=== PATIENT | male | born 1975 | race Caucasian/White ===

== ENCOUNTER 2018-12-09 17:10 | Emergency (ER) | payer BC, OTHER ==
[2018-12-09] MEDS ORDERED: Ondansetron 4 MG/2 ML SDV IVPUSH ONE (17:46)
[2018-12-09] MEDS ORDERED: HYDROmorphone 1 MG/ML Syringe IVPUSH STA (17:46)
--- NOTE | 2018-12-09 17:52 | EDM.PDOC ---
<Kaz Holder - Last Filed: 12/09/18 18:49> ED HPI GENERAL MEDICAL PROBLEM - General Chief Complaint: Abdominal Pain Stated Complaint: STOMACH PAIN Time Seen by Provider: 12/09/18 17:25 Source of Information: Reports: Patient, Family (Mother, sister), RN Notes Reviewed History Limitations: Reports: Physical Impairment (Expressive aphasia) - History of Present Illness INITIAL COMMENTS - FREE TEXT/NARRATIVE: The patient suffered a stroke and has expressive aphasia. He is able to answer some questions, but many of the specifics of his history are answered by his mother and sister. The patient states that he developed right upper quadrant abdominal pain around 14:30 this afternoon, after eating a miller cheeseburger around 13:00. The character of the pain is unclear. The triage nurse indicated that the pain radiates through to his back, but the patient denies that to me. The pain is constant, but may be getting progressively worse. The patient indicates that his pain is made worse if he presses on it, otherwise, he has not identified any modifiers. He has not had any nausea, vomiting, constipation, diarrhea, or urinary symptoms. No recent fever. No prior similar symptoms. He has not taken any [id number] or home remedies to treat his symptoms. [facility] Treatments OCEANOLOGIST: Reports: Other (see below) Other Treatments OCEANOLOGIST: none Right Upper Abdomen Pain Score (Numeric/FACES): 6 - Related Data Allergies Allergy/AdvReac Type Severity Reaction Status Date / Time No Known Allergies Allergy Verified 04/17/14 22:03 Home Meds: Home Meds . [Unable to Verify Home Med List] 12/09/18 [History] Past Medical History Cardiovascular History: Reports: Other (See Below) (Aortic stenosis, status post porcine aVR) Neurological History: Reports: CVA Other Neuro History: Residual expressive aphasia, right hemiparesis Psychiatric History: Reports: Anxiety, Depression - Past Surgical History Cardiovascular Surgical History: Reports: Valve Replacement (porcine aVR) GI Surgical History: Reports: Appendectomy Musculoskeletal Surgical History: Reports: ORIF (right knee) Social & Family History - Tobacco Use Smoking Status *Q: Current Some Day Smoker - Alcohol Use Alcohol Use History: Yes Alcohol Use Frequency: Socially - Recreational Drug Use Recreational Drug Use: No - Living Situation & Occupation Living situation: Reports: , with Family (Brother + his family) Occupation: Disabled ED ROS GENERAL - Review of Systems Review Of Systems: ROS reveals no pertinent complaints other than HPI. ED EXAM, GI/ABD - Physical Exam Exam: See Below Exam Limited By: No Limitations General Appearance: Alert, WD/WN, No Apparent Distress Eyes: Bilateral: Normal Appearance, EOMI Ears: Normal External Exam, Hearing Grossly Normal Nose: Normal Inspection Throat/Mouth: Normal Inspection, Normal Lips, Normal Voice, No Airway Compromise Head: Atraumatic, Normocephalic Neck: Normal Inspection, Full Range of Motion Respiratory/Chest: No Respiratory Distress, Lungs Clear, Normal Breath Sounds, No Accessory Muscle Use Cardiovascular: Normal Peripheral Pulses, Regular Rate, Rhythm, No Edema, No Gallop, No JVD, No Murmur, No Rub GI/Abdominal Exam: Normal Bowel Sounds, Soft, No Organomegaly, No Distention, No Abnormal Bruit, No Mass, Tender (RUQ only, palpating elsewhere on the abdomen causes right upper quadrant pain. Hendrickson sign present.) (Male) Exam: Deferred Rectal (Males) Exam: Deferred Back Exam: Normal Inspection, Full Range of Motion. No: CVA Tenderness (L), CVA Tenderness (R) Extremities: Normal Inspection, Normal Range of Motion, No Pedal Edema, Normal Capillary Refill Neurological: Alert, No Motor/Sensory Deficits, Other (Expressive aphasia. Right hemiparesis.) Psychiatric: Normal Affect Skin Exam: Warm, Dry, Intact, Normal Color, No Rash Course - Vital Signs Last Recorded V/S: Last Vital Signs Temp 97.2 F 12/09/18 17:23 Pulse 76 12/09/18 17:23 Resp 20 12/09/18 17:23 BP 143/83 H 12/09/18 17:23 Pulse Ox 97 12/09/18 17:23 - Orders/Labs/Meds Orders: Active Orders 24 hr Category Date Time Status Abdomen Pelvis w Cont [CT] Stat Exams 12/09/18 17:46 Taken Sodium Chloride 0.9% [Normal Saline] 1,000 ml Med 12/09/18 18:00 Active IV ASDIRECTED Medication Orders Sodium Chloride (Normal Saline) 1,000 mls @ 150 mls/hr IV ASDIRECTED JULIAN Last Admin: 12/09/18 18:04 Dose: 150 mls/hr Labs: Laboratory Tests 12/09/18 12/09/18 Range/Units 18:00 18:00 WBC 7.88 (4.23-9.07) K/mm3 RBC 4.97 (4.63-6.08) M/mm3 Hgb 16.0 (13.7-17.5) gm/L Hct 43.3 (40.1-51.0) % MCV 87.1 (79.0-92.2) fl MCH 32.2 (25.7-32.2) pg MCHC 37.0 H (32.2-35.5) g/dl RDW Std Deviation 39.7 (35.1-43.9) fL Plt Count 189 (163-337) K/mm3 MPV 9.6 (9.4-12.3) fl Neutrophils % (Manual) 67 H (40-60) % Band Neutrophils % 0 (0-10) % Lymphocytes % (Manual) 22 (20-40) % Atypical Lymphs % 2 % Monocytes % (Manual) 3 (2-10) % Eosinophils % (Manual) 4 (0.8-7.0) % Basophils % (Manual) 1 (0.2-1.2) Myelocytes % 1 Platelet Estimate Adequate Plt Morphology Comment See note RBC Morph Comment Normal Sodium 141 (136-145) mEq/L Potassium 3.7 (3.5-5.1) mEq/L Chloride 104 (98-107) mEq/L Carbon Dioxide 28 (21-32) mEq/L Anion Gap 12.7 (5-15) BUN 12 (7-18) mg/dL Creatinine 1.3 (0.7-1.3) mg/dL Est Cr Clr Drug Dosing 77.21 mL/min Estimated GFR (MDRD) > 60 (>60) mL/min BUN/Creatinine Ratio 9.2 L (14-18) Glucose 119 H (74-106) mg/dL Calcium 9.0 (8.5-10.1) mg/dL Total Bilirubin 0.4 (0.2-1.0) mg/dL AST 153 H (15-37) U/L ALT 69 H (16-63) U/L Alkaline Phosphatase 65 (46-116) U/L Total Protein 7.3 (6.4-8.2) g/dl Albumin 3.8 (3.4-5.0) g/dl Globulin 3.5 gm/dL Albumin/Globulin Ratio 1.1 (1-2) Lipase 127 (73-393) U/L Meds: Medications Generic Name Dose Route Start Last Admin Trade Name Kathie PRN Reason Stop Dose Admin Sodium Chloride 1,000 mls @ 150 mls/hr 12/09/18 18:00 12/09/18 18:04 Normal Saline IV 150 mls/hr ASDIRECTED JULIAN Administration Discontinued Medications Generic Name Dose Route Start Last Admin Trade Name Kathie PRN Reason Stop Dose Admin Famotidine 20 mg 12/09/18 20:27 Pepcid IVPUSH 12/09/18 20:28 ONETIME ONE Hydromorphone HCl 1 mg 12/09/18 17:46 12/09/18 18:03 Dilaudid IVPUSH 12/09/18 17:47 1 mg ONETIME STA Administration Iohexol 100 ml 12/09/18 18:26 12/09/18 18:54 Omnipaque-300 IVPUSH 12/09/18 18:27 100 ml ONETIME ONE Administration Ondansetron HCl 4 mg 12/09/18 17:46 12/09/18 18:03 Zofran IVPUSH 12/09/18 17:47 4 mg ONETIME ONE Administration Sodium Chloride 20 ml 12/09/18 18:55 Normal Saline FLUSH 12/09/18 18:56 ONETIME ONE - Re-Assessments/Exams Free Text/Narrative Re-Assessment/Exam: 12/09/18 17:48 By both history and physical exam, the patient is likely suffering from acute cholecystitis. I have ordered blood work and a CT scan of the abdomen and pelvis with oral and IV contrast to evaluate. In the meantime, the patient will receive IV Dilaudid, IV Zofran, and IV fluid. 12/09/18 19:[address] Obando, and care of the patient turned over to him at this time for change of shift. Departure - Departure Disposition: Home, Self-Care 01 Clinical Impression: Abdominal pain Qualifiers: Abdominal location: right upper quadrant Qualified Code(s): R10.11 - Right upper quadrant pain - Discharge Information Referrals: Dahlia Miller MD [Primary Care Provider] - 1 Week Forms: ED Department Discharge Additional Instructions: Take pepcid daily for 1 week. Start with a bland diet for the next couple days and advance your diet as tolerated. Please return if you are worse. <Ronaldo Obando - Last Filed: 12/09/18 20:32> Course - Re-Assessments/Exams Free Text/Narrative Re-Assessment/Exam: 12/09/18 20:[address] Holder. The patient's CBC looks good. His glucose was 119. His AST was elevated at 153. His ALT was elevated at 69. His lipase was normal. His CT shows no sign of acute intra-abdominal pathology. His gallbladder looked good but it still could not be functioning properly. I will give him a dose of pepcid 20mg IV here. He does feel better now. I will have him follow up with his doctor [facility] he may need a further work up such as an US and HIDA scan. Departure - Departure Time of Disposition: 20:35 Condition: Good - Discharge Information *PRESCRIPTION DRUG MONITORING PROGRAM REVIEWED*: Not Applicable *COPY OF PRESCRIPTION DRUG MONITORING REPORT IN PATIENT MONET: Not Applicable
[2018-12-09] MEDS ORDERED: Sodium Chloride 0.9% 1,000 ML IV SCH (18:00)
[2018-12-09] MEDS ORDERED: Iohexol 647 MG/ML 100 ML Bottle IVPUSH ONE (18:26)
[2018-12-09] MEDS ORDERED: Sodium Chloride 0.9% 20 ML SDV FLUSH ONE (18:55)
[2018-12-09] MEDS ORDERED: Famotidine 20 MG/2 ML SDV IVPUSH ONE (20:27)
--- NOTE | 2018-12-10 07:36 | CT ---
CT abdomen and pelvis Technique: Multiple axial sections were obtained from above the dome of the diaphragm inferiorly through the pubic symphysis. Intravenous contrast was utilized. No oral contrast was given. Delayed images were obtained through the bladder. Comparison: No previous abdominal imaging. Findings: Mild artifact noted within the upper abdomen due to the patient's arms being located along his side. Small portion of the visualized lung bases shows nothing acute. Liver contains no focal abnormality. Gallbladder contains no calcified gallstones. Spleen appears within normal limits. Adrenal glands show no nodule. Pancreas is normal. Kidneys show symmetric contrast enhancement without hydronephrosis or mass. Aorta shows no aneurysm. No retroperitoneal adenopathy or mesenteric abnormalities are seen. No pelvic mass or adenopathy is identified. Delayed images show contrast within the distal ureters and within the bladder. Bone window settings were reviewed which show evidence of previous sternotomy. Very minimal degenerative change is incidentally noted within the spine. Appendix not visualized with certainty. Impression: 1. Nothing acute is identified on CT study of the abdomen and pelvis. Diagnostic code #1 I agree with preliminary report from [facility], finalized on 12/09/18, 8:38 PM Central Time
== END 2018-12-09 20:44 | disposition home or self-care (01) ==
LOC: JD.ED 17:10
DX: R10.11 Right upper quadrant pain (principal); F17.200 Nicotine dependence, unspecified, uncomplicated; Z86.73 Personal history of transient ischemic attack (TIA), and cerebral infarction without residual deficits
CPT/HCPCS: 36415; 74177; 80053; 83690; 85007; 85027; 96361; 96374; 96375; 99284; J1170; J2405; J3490; J7040; Q9967

== ENCOUNTER 2018-12-13 14:35 | Emergency (ER) | payer OTHER ==
[2018-12-13] MEDS ORDERED: Lactated Ringers 1,000 ML IV ONE (15:15)
[2018-12-13] MEDS ORDERED: Ondansetron 4 MG/2 ML SDV IVPUSH ONE (15:16)
[2018-12-13] MEDS ORDERED: Sodium Chloride 0.9% 10 ML Syringe FLUSH PRN (15:21)
--- NOTE | 2018-12-13 15:52 | EDM.PDOC ---
ED HPI GENERAL MEDICAL PROBLEM - General Chief Complaint: Abdominal Pain Stated Complaint: ABDOMINAL PAIN Time Seen by Provider: 12/13/18 15:00 Source of Information: Reports: Patient, Old Records History Limitations: Reports: No Limitations - History of Present Illness INITIAL COMMENTS - FREE TEXT/NARRATIVE: 43 year old male presents for evaluation and treatment of RUQ pain. Patient reports he has been experiencing RUQ since Monday. Pain is primarily in the RUQ and radiates to the right back. Pain waxes and wanes. Currently pain is a 6/10. Worse after eating. Last intake was at 10:00am, patient had cereal. Patient was seen in the ER on Monday for this. Had labs and a CT scan done. Instructed to follow-up in the clinic for an ultrasound and HIDA scan. Patient was seen at the [facility] today and instructed to come to the ER due to significant pain. Patient has a history of a CVA and has residual expressive aphasia. Duration: Day(s): (5) Right Upper Abdomen Pain Score (Numeric/FACES): 7 - Related Data Allergies Allergy/AdvReac Type Severity Reaction Status Date / Time No Known Allergies Allergy Verified 04/17/14 22:03 Home Meds: Home Meds ARIPiprazole [Abilify] 15 mg PO DAILY 12/13/18 [History] Acetaminophen [Tylenol] 650 mg PO Q8H PRN 12/13/18 [History] Aspirin [Halfprin] 81 mg PO DAILY 12/13/18 [History] Escitalopram Oxalate [Lexapro] 0 mg PO DAILY 12/13/18 [History] Fish Oil/[place]-3 Fatty Acids [Fish Oil 1,000 MG] 2,000 mg PO DAILY 12/13/18 [ History] Pregabalin [Lyrica] 150 mg PO BID 12/13/18 [History] buPROPion HCl [Wellbutrin Xl] 150 mg PO DAILY 12/13/18 [History] Past Medical History HEENT History: Reports: Allergic Rhinitis Cardiovascular History: Reports: Other (See Below) Other Cardiovascular History: aortic valve replacement Neurological History: Reports: CVA Other Neuro History: Residual expressive aphasia, right hemiparesis; Psychiatric History: Reports: Anxiety, Depression - Past Surgical History Cardiovascular Surgical History: Reports: Valve Replacement GI Surgical History: Reports: Appendectomy Musculoskeletal Surgical History: Reports: ORIF Social & Family History - Tobacco Use Used Tobacco, but Quit: Yes Month/Year Tobacco Last Used: 4 months - Caffeine Use Caffeine Use: Reports: Coffee, Soda - Recreational Drug Use Recreational Drug Use: No - Living Situation & Occupation Living situation: Reports: , with Family (Brother + his family) Occupation: Disabled ED ROS GENERAL - Review of Systems Review Of Systems: See Below Constitutional: Denies: Fever, Chills Respiratory: Denies: Shortness of Breath Cardiovascular: Denies: Chest Pain GI/Abdominal: Reports: Abdominal Pain (RUQ), Decreased Appetite. Denies: Hematochezia, Melena, Nausea, Vomiting : Reports: No Symptoms. Denies: Dysuria ED EXAM, GI/ABD - Physical Exam Exam: See Below Exam Limited By: No Limitations General Appearance: Alert, WD/WN, No Apparent Distress Ears: Normal External Exam Nose: Normal Inspection Throat/Mouth: Normal Inspection, Normal Lips, Normal Voice, No Airway Compromise Respiratory/Chest: No Respiratory Distress, Lungs Clear, Normal Breath Sounds Cardiovascular: Normal Peripheral Pulses, Regular Rate, Rhythm, No Murmur GI/Abdominal Exam: Normal Bowel Sounds, Soft, Tender (RUQ), Other (+ murphys sign) Neurological: Alert, Normal Cognition Psychiatric: Normal Affect, Normal Mood Skin Exam: Warm, Dry, Normal Color Course - Vital Signs Last Recorded V/S: Last Vital Signs Temp 97.4 F 12/13/18 14:48 Pulse 71 12/13/18 14:48 Resp 20 12/13/18 14:48 BP 131/87 12/13/18 14:48 Pulse Ox 97 12/13/18 14:48 - Orders/Labs/Meds Labs: Laboratory Tests 12/13/18 12/13/18 12/13/18 Range/Units 15:25 15:25 16:10 WBC 6.46 (4.23-9.07) K/mm3 RBC 5.12 (4.63-6.08) M/mm3 Hgb 15.8 (13.7-17.5) gm/L Hct 45.5 (40.1-51.0) % MCV 88.9 (79.0-92.2) fl MCH 30.9 (25.7-32.2) pg MCHC 34.7 (32.2-35.5) g/dl RDW Std Deviation 40.9 (35.1-43.9) fL Plt Count 181 (163-337) K/mm3 MPV 9.0 L (9.4-12.3) fl Neutrophils % (Manual) 61 H (40-60) % Band Neutrophils % 0 (0-10) % Lymphocytes % (Manual) 31 (20-40) % Atypical Lymphs % 0 % Monocytes % (Manual) 6 (2-10) % Eosinophils % (Manual) 2 (0.8-7.0) % Basophils % (Manual) 0 L (0.2-1.2) Platelet Estimate Adequate RBC Morph Comment Normal Sodium 140 (136-145) mEq/L Potassium 4.4 (3.5-5.1) mEq/L Chloride 104 (98-107) mEq/L Carbon Dioxide 31 (21-32) mEq/L Anion Gap 9.4 (5-15) BUN 10 (7-18) mg/dL Creatinine 1.1 (0.7-1.3) mg/dL Est Cr Clr Drug Dosing 94.13 mL/min Estimated GFR (MDRD) > 60 (>60) mL/min BUN/Creatinine Ratio 9.1 L (14-18) Glucose 94 (74-106) mg/dL Calcium 9.7 (8.5-10.1) mg/dL Total Bilirubin 0.4 (0.2-1.0) mg/dL GGT 11 L (15-85) U/L AST 41 H (15-37) U/L ALT 75 H (16-63) U/L Alkaline Phosphatase 51 (46-116) U/L C-Reactive Protein < 0.2 (<1.0) mg/dL Total Protein 7.3 (6.4-8.2) g/dl Albumin 3.7 (3.4-5.0) g/dl Globulin 3.6 gm/dL Albumin/Globulin Ratio 1.0 (1-2) Lipase 112 (73-393) U/L Urine Color Light yellow (Yellow) Urine Appearance Clear (Clear) Urine pH 7.5 (5.0-8.0) Ur Specific Arrey 1.020 (1.005-1.030) Urine Protein Negative (Negative) Urine Glucose (UA) Negative (Negative) Urine Ketones Negative (Negative) Urine Occult Blood Negative (Negative) Urine Nitrite Negative (Negative) Urine Bilirubin Negative (Negative) Urine Urobilinogen 0.2 (0.2-1.0) Ur Leukocyte Esterase Negative (Negative) Urine RBC Not seen (0-5) /hpf Urine WBC Not seen (0-5) /hpf Ur Squamous Epith Cells Not seen (0-5) /hpf Urine Bacteria Occasional (FEW) /hpf Urine Mucus Not seen (FEW) /hpf Meds: Medications Discontinued Medications Generic Name Dose Route Start Last Admin Trade Name Freq PRN Reason Stop Dose Admin Lactated Ringer's 1,000 mls @ 999 mls/hr 12/13/18 15:15 12/13/18 15:30 Ringers, Lactated IV 12/13/18 16:15 999 mls/hr .BOLUS ONE Administration Ondansetron HCl 4 mg 12/13/18 15:16 12/13/18 15:32 Zofran IVPUSH 12/13/18 15:17 4 mg ONETIME ONE Administration Sodium Chloride 10 ml 12/13/18 15:21 12/13/18 15:30 Saline Flush FLUSH 10 ml ASDIRECTED PRN Administration Keep Vein Open - Radiology Interpretation Free Text/Narrative:: Limited abdominal ultrasound: Multiple real-time images were obtained of the right upper abdomen. Excessive bowel gas is seen limiting details. Visualized liver shows no discrete abnormality. Right kidney shows no hydronephrosis or discrete mass. Right kidney has a length of 13.0 cm. Gallbladder shows no calcified gallstones. No gallbladder wall thickening or biliary duct dilatation is appreciated. Pancreas is obscured. Inferior vena cava is partially seen which appears patent. Portal vein shows normal hepatopedal flow. Impression: 1. Somewhat limited study due to bowel gas. Within this limitation, no abnormality is appreciated on right upper quadrant abdominal ultrasound exam. - Re-Assessments/Exams Free Text/Narrative Re-Assessment/Exam: 12/13/18 17:37 Reviewed the labs and imaging with the patient. He is declining pain medications during his ER stay. I did discuss the case with Dr. Santos, surgeon mailroom personnel. He recommended obtaining a HIDA scan. He also felt that the next step would be an EGD if his HIDA scan is negative. He did not feel given that he did not have any gallstones, ductal dilation or gallbladder wall thickening that at this point he is a candidate for a cholecystectomy. I discussed this with the patient. He is in agreement. Plan we Will be to get an outpatient HIDA scan and have him follow up with surgery. If he continues to have discomfort he will then require an EGD. He expresses understanding. Offered pain medication but he states he has some at home. Discharge instructions as documented. Departure - Departure Time of Disposition: 17:46 Disposition: Home, Self-Care 01 Condition: Fair Clinical Impression: Abdominal pain Qualifiers: Abdominal location: right upper quadrant Qualified Code(s): R10.11 - Right upper quadrant pain - Discharge Information *PRESCRIPTION DRUG MONITORING PROGRAM REVIEWED*: No *COPY OF PRESCRIPTION DRUG MONITORING REPORT IN PATIENT MONET: No Instructions: Abdominal Pain, Adult Referrals: Dahlia Miller MD [Primary Care Provider] - Forms: ED Department Discharge Additional Instructions: An order has been placed for you to have an outpatient HIDA scan. Call [phone] and ask for the radiology department to schedule this. Follow-up with surgery. Recommend dr. Thomas at [place]. [facility] [phone] to schedule with her. or one of the locums surgeons at [facility], call [phone] to schedule with surgery at [facility]. avoid fatty foods. Take your pain medication you have at home as needed for pain. Please return to the er should your symptoms change or worsen.
--- NOTE | 2018-12-13 16:21 | US ---
Limited abdominal ultrasound: Multiple real-time images were obtained of the right upper abdomen. Excessive bowel gas is seen limiting details. Visualized liver shows no discrete abnormality. Right kidney shows no hydronephrosis or discrete mass. Right kidney has a length of 13.0 cm. Gallbladder shows no calcified gallstones. No gallbladder wall thickening or biliary duct dilatation is appreciated. Pancreas is obscured. Inferior vena cava is partially seen which appears patent. Portal vein shows normal hepatopedal flow. Impression: 1. Somewhat limited study due to bowel gas. Within this limitation, no abnormality is appreciated on right upper quadrant abdominal ultrasound exam. Diagnostic code #2
== END 2018-12-13 17:59 | disposition home or self-care (01) ==
LOC: JD.ED 14:35
DX: R10.11 Right upper quadrant pain (principal); Z79.899 Other long term (current) drug therapy; Z95.4 Presence of other heart-valve replacement; Z86.73 Personal history of transient ischemic attack (TIA), and cerebral infarction without residual deficits
CPT/HCPCS: 36415; 76705; 80053; 81001; 82977; 83690; 85007; 85027; 86140; 96360; 96374; 99284; J2405; J7120

== ENCOUNTER 2022-02-23 12:34 | Emergency (ER) | payer OTHER ==
[2022-02-23] MEDS: Magnesium Citrate Solution 296 ML Bottle PO ONE (15:04)
== END 2022-02-23 15:07 | disposition home or self-care (01) ==
LOC: JD.ED 12:34
DX: R10.11 Right upper quadrant pain (principal); I10 Essential (primary) hypertension; Z86.73 Personal history of transient ischemic attack (TIA), and cerebral infarction without residual deficits; Z79.82 Long term (current) use of aspirin
CPT/HCPCS: 36415; 51702; 74019; 80053; 81003; 84153; 85025; 99284; A9270

== ENCOUNTER 2022-09-02 16:41 | Emergency (ER) | payer OTHER ==
[2022-09-02] MEDS ORDERED: Sodium Chloride 0.9% 10 ML Syringe FLUSH PRN (17:13)
== END 2022-09-02 19:00 | disposition home or self-care (01) ==
LOC: JD.ED 16:41
DX: R07.89 Other chest pain (principal); I10 Essential (primary) hypertension; F17.210 Nicotine dependence, cigarettes, uncomplicated; Z86.73 Personal history of transient ischemic attack (TIA), and cerebral infarction without residual deficits; Z79.82 Long term (current) use of aspirin
CPT/HCPCS: 36415; 71045; 80053; 83880; 84484; 85025; 85379; 93005; 99285; J3490; 93010; 99284

== ENCOUNTER 2022-11-28 11:48 | Emergency (ER) | payer OTHER | END 2022-11-28 13:18 | disposition home or self-care (01) | LOC: JD.ED 11:48 | DX: S42.251A Displaced fracture of greater tuberosity of right humerus, initial encounter for closed fracture (principal); S42.211A Unspecified displaced fracture of surgical neck of right humerus, initial encounter for closed fracture; I10 Essential (primary) hypertension; Z79.82 Long term (current) use of aspirin; Z86.73 Personal history of transient ischemic attack (TIA), and cerebral infarction without residual deficits; W18.30XA Fall on same level, unspecified, initial encounter | CPT/HCPCS: 73030-26-RT; 73030-RT; 99283 ==

== ENCOUNTER 2023-05-19 12:38 | Emergency (ER) | payer OTHER ==
[2023-05-19 13:27] LABS: BASOPHILS ABSOLUTE AUTO 0.1 K/mm3 (0.0-0.2); EOSINOPHILS ABSOLUTE AUTO 0.3 K/mm3 (0.0-0.4); EOSINOPHILS PERCENT AUTO 3.6 % (0.0-6.0); HEMATOCRIT 47.7 % (42.0-52.0); HEMOGLOBIN 16.9 gm/dl (14.0-18.0); IMMATURE GRAN ABSOLUTE AUTO 0.02 K/mm3 (0.00-0.05); IMMATURE GRAN PERCENT AUTO 0.3 % (0.0-0.4); LYMPHOCYTES PERCENT AUTO 28.2 % (24.0-44.0); MEAN CORPUSCULAR HEMOGLOBIN 31.1 pg (28.0-32.0); MEAN CORPUSCULAR HGB CONC 35.4 g/dl (32.0-36.0); MEAN CORPUSCULAR VOLUME 87.8 fl (83.0-99.0); MEAN PLATELET VOLUME 9.4 fl (9.4-12.4); MONOCYTES ABSOLUTE AUTO 0.7 K/mm3 (0.0-0.8); MONOCYTES PERCENT AUTO 9.4 % (0.0-8.0); NEUTROPHILS PERCENT AUTO 57.5 % (41.0-71.0); PLATELET COUNT,PLT 203 K/mm3 (150-400); RED BLOOD CELL COUNT 5.43 M/mm3 (4.52-5.90); WHITE BLOOD CELL COUNT,WBC 7.01 K/mm3 (3.9-11.3)
[2023-05-19 13:38] LABS: CHOLESTEROL HDL 31 mg/dL (40-59); CHOLESTEROL LDL DIRECT 107 mg/dL (<100); CHOLESTEROL TOTAL 174 mg/dL (<200); TRIGLYCERIDES 321 mg/dL (<150)
[2023-05-19 13:46] LABS: INR 0.96; PROTHROMBIN TIME 10.3 SECONDS (9.7-12.0)
[2023-05-19 13:48] LABS: PTT,PARTIAL THROMBOPLSTIN TIME 25.6 SECONDS (21.7-31.4)
[2023-05-19 13:52] LABS: HEMOGLOBIN A1C 5.3 %
[2023-05-19 13:58] LABS: D-DIMER QUANTITATIVE 0.59 mg/L (0.19-0.50)
[2023-05-19] MEDS ORDERED: Metoclopramide 10 MG/2 ML SDV IVPUSH ONE (15:07)
[2023-05-19] MEDS ORDERED: Meclizine 25 MG Tab PO ONE (15:55)
== END 2023-05-19 16:14 | disposition home or self-care (01) ==
LOC: JD.ED 12:38
DX: H53.47 Heteronymous bilateral field defects (principal); H81.12 Benign paroxysmal vertigo, left ear; I10 Essential (primary) hypertension
CPT/HCPCS: 36415; 70450; 70496; 70498; 80061; 82947; 83036; 85025; 85379; 85610; 85730; 96374; 99284; A9270; J2765

== ENCOUNTER 2025-04-20 20:31 | Emergency (ER) | payer OTHER ==
[2025-04-20 21:29] LABS: BASOPHILS ABSOLUTE AUTO 0.1 K/mm3 (0.0-0.2); BASOPHILS PERCENT AUTO 0.8 % (0.0-1.0); EOSINOPHILS ABSOLUTE AUTO 0.3 K/mm3 (0.0-0.4); EOSINOPHILS PERCENT AUTO 4.3 % (0.0-6.0); IMMATURE GRAN ABSOLUTE AUTO 0.03 K/mm3 (0.00-0.05); IMMATURE GRAN PERCENT AUTO 0.4 % (0.0-0.4); LYMPHOCYTES ABSOLUTE AUTO 1.7 K/mm3 (1.0-4.8); LYMPHOCYTES PERCENT AUTO 23.3 % (24.0-44.0); MEAN PLATELET VOLUME 9.2 fl (9.4-12.4); MONOCYTES ABSOLUTE AUTO 0.6 K/mm3 (0.0-0.8); MONOCYTES PERCENT AUTO 8.6 % (0.0-8.0); NEUTROPHILS ABSOLUTE AUTO 4.6 K/mm3 (1.8-7.7); NEUTROPHILS PERCENT AUTO 62.6 % (41.0-71.0); NRBC ABSOLUTE 0.00 (0.00-0.02); NRBC PERCENT 0.0 % (0.0-0.2); PLATELET COUNT,PLT 201 K/mm3 (150-400); RED BLOOD CELL COUNT 5.12 M/mm3 (4.52-5.90); WHITE BLOOD CELL COUNT,WBC 7.41 K/mm3 (3.9-11.3)
[2025-04-20 21:30] LABS: APPEARANCE,URINE CLEAR (Clear); GLUCOSE,URINE NEGATIVE (Negative); OCCULT BLOOD,URINE NEGATIVE (Negative)
[2025-04-20 21:42] LABS: BUPRENORPHINE SCREEN,URINE NEGATIVE (CUTOFF=10); METHADONE SCREEN, URINE NEGATIVE (CUT0FF=200); METHAMPHETAMINES SCREEN, URINE NEGATIVE (CUTOFF=500); OXYCODONE SCREEN,URINE NEGATIVE (CUT0FF=100); THC SCREEN,URINE 20 NG/ML NEGATIVE (CUTOFF=50)
[2025-04-20 21:43] LABS: AMPHETAMINES SCREEN, URINE NEGATIVE (CUTOFF=500)
[2025-04-20 22:02] LABS: A/G RATIO 1.1 (1-2); ALANINE AMINOTRANSFERASE,ALT 34.0 U/L (16-63); ASPARTATE AMNIOTRANSFERASE,AST 25.0 U/L (15-37); BILIRUBIN TOTAL 1.0 mg/dL (0.2-1.0); BLOOD UREA NITROGEN,BUN 12.0 mg/dL (7-18); CARBON DIOXIDE,CO2 33.0 mEq/L (21-32); CHLORIDE,CL 103.0 mEq/L (98-107); CREATININE 1.0 mg/dL (0.7-1.3); EST CRCL DRUG DOSING (CG) 100.23 mL/min; ESTIMATED GFR 93.0 mL/min (>60); GLUCOSE RANDOM 92.0 mg/dL (70-99); POTASSIUM,K 3.5 mEq/L (3.5-5.1); PROTEIN TOTAL,TP 7.8 g/dl (6.4-8.2); SODIUM,NA 140.0 mEq/L (136-145)
[2025-04-20 22:07] LABS: ETHANOL BLOOD MEDICAL 0.0 gm% (0.00); TSH 3.276 uIU/mL (0.358-3.74)
[2025-04-20] MEDS: Sodium Chloride 0.9% 10 ML Syringe FLUSH PRN (22:46)
[2025-04-20] MEDS: Iopamidol 755 Mg/ML 100 ML Bottle IVPUSH ONE (23:00)
== END 2025-04-21 02:49 | disposition home or self-care (01) ==
LOC: JD.ED 20:31
DX: R45.1 Restlessness and agitation (principal); Z90.49 Acquired absence of other specified parts of digestive tract; Z95.2 Presence of prosthetic heart valve; Z79.82 Long term (current) use of aspirin; Z79.899 Other long term (current) drug therapy
CPT/HCPCS: 36415; 70450; 70496; 70498; 80053; 80306; 80307; 81003; 83735; 84443; 85025; 86592; 93005; 99285; Q9967; 93010; 99283; A9270-GY